=== PATIENT | female | born 1945 | race Caucasian/White ===

== ENCOUNTER 2017-09-23 13:12 | Emergency (ER) | payer OTHER ==
--- NOTE | 2017-09-23 14:31 | UC ---
Respiratory Complaint HPI - HPI Summary HPI Summary: About 1 week ago developed cough, ST, nasal congestion, and severe headache over a period of hours/a day. Was about to travel to [place] from [place], so she called her PCP and was prescribed augmentin for her symptoms. Seemed to have some initial improvement for 2-3 days, but now has deep, chesty cough with tenacious sputum. Is coughing all night and not sleeping well. No new fevers. Has not been dx with COPD, but pt has smoked her whole life. - History of Current Complaint Chief Complaint: UCGeneralIllness Stated Complaint: URI Time Seen by Provider: 09/23/17 14:05 Hx Obtained From: Patient ?: No Onset/Duration: Gradual Onset, Lasting Days Timing: Constant Severity Initially: Moderate Severity Currently: Moderate Character: Cough: Productive Aggravating Factors: Deep Breaths, Recumbent Position Alleviating Factors: Nothing Associated Signs And Symptoms: Positive: Wheezing, URI, Nasal Congestion. Negative: Fever, Chills, Hemoptysis - Allergies/Home Medications Allergies/Adverse Reactions: Allergies Allergy/AdvReac Type Severity Reaction Status Date / Time No Known Allergies Allergy Verified 09/23/17 13:29 Home Medications: Home Medications Acetaminophen TAB* [Tylenol TAB*] 650 mg PO Q4H 09/23/17 [History Confirmed ] Cranberry (Vaccinium Macrocarp [Cranberry] 600 mg PO DAILY 09/23/17 [History Confirmed 09/23/17] Methenamine Hippurate TAB* [Hiprex TAB*] 1 gm PO DAILY 09/23/17 [History Confirmed 09/23/17] Omeprazole CAP* [Prilosec CAP* 20 MG] 20 mg PO DAILY 09/23/17 [History Confirmed 09/23/17] Valsartan TAB* [Diovan TAB*] 160 mg PO DAILY 09/23/17 [History Confirmed ] PMH/Surg Hx/FS Hx/Imm Hx - Additional Past Medical History Additional PMH: frequent UTIs Cardiovascular History: Hypertension - Surgical History Surgical History: Yes Surgery Procedure, Year, and Place: hysterectomy, ankle surgery, - Family History Known Family History: Positive: Hypertension - Social History Occupation: Retired Alcohol Use: Weekly Substance Use Type: None Smoking Status (MU): Current Every Day Smoker Type: Cigarettes Review of Systems Constitutional: Fatigue Skin: Negative Eyes: Negative ENT: Sore Throat, Ear Ache, Nasal Discharge Respiratory: Shortness Of Breath, Cough Cardiovascular: Negative Gastrointestinal: Negative Genitourinary: Negative Motor: Negative Neurovascular: Negative Musculoskeletal: Negative Neurological: Negative Psychological: Negative Is Patient Immunocompromised?: No All Other Systems Reviewed And Are Negative: Yes Physical Exam Triage Information Reviewed: Yes Appearance: Well-Nourished, Pain Distress - mild with cough Vital Signs: Initial Vital Signs Temp 96.9 F 09/23/17 13:22 Pulse 98 09/23/17 13:22 Resp 18 09/23/17 13:22 BP 140/68 09/23/17 13:22 Pulse Ox 95 09/23/17 13:22 Vital Signs Reviewed: Yes Eye Exam: Normal Eyes: Positive: Conjunctiva Clear ENT: Positive: Pharynx normal, Nasal congestion, TMs normal. Negative: Nasal drainage, TM bulging, TM dull, TM red, Tonsillar swelling - s/p tonsillectomy Neck exam: Normal Respiratory Exam: Other - frequent congested cough Respiratory: Positive: No accessory muscle use, Rhonchi. Negative: Crackles Cardiovascular Exam: Other - irregular rhythm Cardiovascular: Positive: No Murmur Musculoskeletal Exam: Normal Neurological Exam: Normal Psychological Exam: Normal Skin Exam: Normal UC Diagnostic Evaluation - Laboratory O2 Sat by Pulse Oximetry: 95 Respiratory Course/Dx - Differential Dx/Diagnosis Provider Diagnoses: bronchitis. suspect COPD exacerbation. bronchospasm. sinus arrhythmia Discharge - Discharge Plan Condition: Stable Disposition: HOME Prescriptions: Acetaminop/Codeine 30 MG TAB* [Tylenol/Codeine 30 MG TAB*] 1 tab PO Q6H PRN #15 tab MDD 4 PRN Reason: Cough Albuterol HFA INHALER* [Ventolin HFA Inhaler*] 1 - 2 puff INH Q4H PRN #1 mdi PRN Reason: wheeze, cough Benzonatate CAP* [Tessalon CAP*] 100 mg PO TID PRN #30 cap PRN Reason: Cough Clarithromycin TAB* [Biaxin 500 MG TAB*] 500 mg PO BID #20 tab Patient Education Materials: Bronchospasm (ED) Referrals: No Primary Care Phys,NOPCP [Primary Care Provider] - Additional Instructions: As we discussed, your smoking history makes COPD likely. In addition, the x-ray showed increased lung volumes, which is consistent with COPD. Make sure you see your primary care provider after you go home to follow up on this respiratory infection. If you develop fever or worsening breathing in the coming days, please see your doctor or go to the emergency department.
--- NOTE | 2017-09-23 14:55 | RAD ---
INDICATION: Cough and difficulty breathing for one week. Chronic obstructive pulmonary disease. COMPARISON: No relevant prior exams available on the [facility] for comparison. TECHNIQUE: Dual energy PA and routine lateral views of the chest were obtained. REPORT: Mildly elevated lung volumes. No focal pulmonary lesion, compelling alveolar consolidation, pleural effusion, pneumothorax. The heart, pulmonary vasculature, and mediastinal contours are unremarkable. No significant abnormality of the soft tissue contours or osseous structures for age. IMPRESSION: 1. Mildly elevated lung volumes corresponding with history of COPD. 2. No evidence for pneumonia or presence of a focal pulmonary lesion.
== END 2017-09-23 15:11 | disposition home or self-care (01) ==
LOC: UCEAST 13:12
DX: J20.9 Acute bronchitis, unspecified (principal); Z87.440 Personal history of urinary (tract) infections; Z79.2 Long term (current) use of antibiotics; Z72.0 Tobacco use
CPT/HCPCS: 71020; 93005; 99202; G0463